=== PATIENT | female | born 1960 | race Caucasian/White ===

== ENCOUNTER → 2016-11-24 | Outpatient (CLI) | payer MEDICAID, OTHER ==
[~2016-11-24] MED LIST: ACET325T14 PO; ALOE PO; DEXA4TAB PO; DOXY100C2 PO; L.AC1CAP6 PO; MULT-249 PO; ONDA-39 PO; TURM1POW2 PO; WHEAT GRASS PO; [UNRECOGNIZED DRUG - OTHER] PO
[2016-11-24 12:39] LABS: ASPARTATE AMINO TRANSFERASE 13 U/L (15-37); BLOOD UREA NITROGEN 6 mg/dL (7-18)
== END | disposition home or self-care (01) ==
LOC: STAR 11:00
PROVIDERS: ATTEND Specialist
DX: Z01.818 Encounter for other preprocedural examination (principal); C48.1 Malignant neoplasm of specified parts of peritoneum; J90 Pleural effusion, not elsewhere classified; Z90.710 Acquired absence of both cervix and uterus; Z90.722 Acquired absence of ovaries, bilateral
CPT/HCPCS: 36415; 71020; 80053; 85025; 85610; 85730; 93005

== ENCOUNTER → 2016-11-30 | Outpatient (CLI) | payer OTHER ==
[~2016-11-30] MED LIST changes: +LIDOCAINE 1%, 20ML ONE; +SODIUM BICARBONATE 4.2%, 5ML ONE
[2016-11-30 13:03] LABS: CYTOLOGY BODY FLUID RECD INTO PATHOLOGY; CYTOLOGY BODY FLUID SOURCE PLEURAL FLUID
== END | disposition home or self-care (01) ==
LOC: RAD 11:25
PROVIDERS: ATTEND Specialist
DX: J90 Pleural effusion, not elsewhere classified (principal); C56.9 Malignant neoplasm of unspecified ovary
CPT/HCPCS: 32555; 88112; 88305; J3490

== ENCOUNTER 2016-12-01 16:00 | Inpatient (IN) | payer MEDICAID, OTHER ==
[~2016-12-01] VITALS: Ht 162.6 cm; Wt 69.0 kg
[~2016-12-01 16:00] MED LIST changes: -LIDOCAINE 1%, 20ML ONE; -SODIUM BICARBONATE 4.2%, 5ML ONE
[2016-12-04] MEDS ORDERED: BUPIVACAINE/PF-EPI 0.25% 1:200K ONE (06:52)
[2016-12-04] MEDS ORDERED: LACTATED RINGERS 1,000 ML IV SCH (13:56)
[2016-12-04 14:03] VITALS: BP 112/71
[2016-12-04] MEDS ORDERED: FENTANYL PF 250 MCG/5ML ONE (15:16)
[2016-12-04] MEDS ORDERED: MIDAZOLAM 1 MG/ML, 2ML ONE (15:16)
[2016-12-04] MEDS ORDERED: KETOROLAC 30 MG/1 ML ONE (16:57)
[2016-12-04] MEDS ORDERED: ROCURONIUM 10 MG/ML ONE (16:57)
[2016-12-04] MEDS ORDERED: CEFAZOLIN 1,000 MG ONE (16:57)
[2016-12-04] MEDS ORDERED: PROPOFOL 10 MG/ML, 20ML ONE (16:57)
[2016-12-04] MEDS ORDERED: DEXAMETHASONE 4 MG/ML, 1ML ONE (16:57)
[2016-12-04] MEDS ORDERED: ONDANSETRON 2MG/ML, 2ML ONE (16:57)
[2016-12-04] MEDS ORDERED: FENTANYL PF 100 MCG/2ML IV PRN (18:00)
[2016-12-04] MEDS ORDERED: OXYcodone 5 MG/5 ML ORAL.SOL UDC PO PRN (18:00)
[2016-12-04] MEDS ORDERED: ACETAMINOPHEN 325 MG TABLET PO PRN (18:00)
[2016-12-04] MEDS ORDERED: ONDANSETRON 2MG/ML, 2ML IVPush PRN (18:00)
[2016-12-04] MEDS ORDERED: LABETALOL 5MG/ML, 20ML IV PRN (18:00)
[2016-12-04] MEDS ORDERED: MIDAZOLAM 1 MG/ML, 2ML IV PRN (18:00)
[2016-12-04] MEDS ORDERED: PROMETHAZINE 25 MG/ML, 1ML IV PRN (18:00)
[2016-12-04] MEDS ORDERED: MEPERIDINE/PF 25MG/0.5ML IVPush PRN (18:00)
[2016-12-04] MEDS ORDERED: FENTANYL PF 100 MCG/2ML ONE ×2 (20:25→21:20)
[2016-12-04] MEDS ORDERED: HYDROmorphone 2 MG/ML, 1ML ONE (21:20)
[2016-12-04] MEDS ORDERED: OXYcodone 5 MG/5 ML ORAL.SOL UDC ONE (21:21)
[2016-12-04] MEDS: HYDROmorphone 1 MG/ML, 1ML IV PRN ×2 (21:51→22:07)
[2016-12-04 23:40] VITALS: BP 130/62
[2016-12-05] MEDS: KETOROLAC 30 MG/1 ML IV PRN ×3 (00:02→18:42)
[2016-12-05] MEDS: POTASSIUM CHLORIDE 20 MEQ in D5%-0.45% NACL 1,000 ML IV SCH ×4 (00:02→22:42)
[2016-12-05 03:57] VITALS: BP 107/51
[2016-12-05 06:13] LABS: BLOOD UREA NITROGEN 6 mg/dL (7-18)
[2016-12-05] MEDS: OXYcodone/APAP 5/325MG TABLET PO PRN ×2 (06:22→11:53)
[2016-12-05 07:08] VITALS: BP 94/47
[2016-12-05 13:34] VITALS: BP 114/50
[2016-12-05] MEDS: ONDANSETRON 2MG/ML, 2ML IV PRN (14:45)
[2016-12-05 19:13] VITALS: BP 97/45
[2016-12-05] MEDS ORDERED: PROCHLORPERAZINE 5 MG/ML, 2ML IVPush SCH (21:00)
[2016-12-05] MEDS: PROCHLORPERAZINE 5 MG/ML, 2ML IVPush PRN (22:42)
[2016-12-06] MEDS: KETOROLAC 30 MG/1 ML IV PRN ×4 (00:45→20:11)
[2016-12-06 01:23] VITALS: BP 77/40
[2016-12-06] MEDS ORDERED: SODIUM CHLORIDE 0.9% 1,000ML IVBOLUS ONE ×2 (02:00→08:30)
[2016-12-06] MEDS: PROCHLORPERAZINE 5 MG/ML, 2ML IVPush PRN ×2 (05:35→22:24)
[2016-12-06 05:57] LABS: BLOOD UREA NITROGEN 3 mg/dL (7-18)
[2016-12-06 06:50] VITALS: BP 88/47
[2016-12-06 12:21] VITALS: BP 108/59
[2016-12-06 13:43] VITALS: BP 114/63
[2016-12-06] MEDS: POTASSIUM CHLORIDE 20 MEQ in D5%-0.45% NACL 1,000 ML IV SCH ×2 (14:08→23:15)
[2016-12-06 18:00] VITALS: BP 124/77
[2016-12-06] MEDS: HYDROcodone/APAP 5/325 TABLET PO PRN ×2 (18:03→22:24)
[2016-12-06] MEDS: ONDANSETRON 2MG/ML, 2ML IV PRN (18:03)
[2016-12-06 18:38] VITALS: BP 108/67
[2016-12-07 01:46] VITALS: BP 115/68
[2016-12-07] MEDS: HYDROcodone/APAP 5/325 TABLET PO PRN ×4 (02:55→18:23)
[2016-12-07] MEDS: ONDANSETRON 2MG/ML, 2ML IV PRN (04:59)
[2016-12-07] MEDS: POTASSIUM CHLORIDE 20 MEQ in D5%-0.45% NACL 1,000 ML IV SCH ×3 (06:05→21:13)
[2016-12-07 07:23] VITALS: BP 104/53
[2016-12-07] MEDS: ONDANSETRON 4 MG TABLET PO PRN (11:09)
[2016-12-07 11:36] LABS: BLOOD UREA NITROGEN 2 mg/dL (7-18)
[2016-12-07 14:35] VITALS: BP 122/72
[2016-12-07 21:24] VITALS: BP 127/70
[2016-12-08 01:46] VITALS: BP 124/77
[2016-12-08] MEDS: ONDANSETRON 2MG/ML, 2ML IV PRN (02:22)
[2016-12-08] MEDS: HYDROcodone/APAP 5/325 TABLET PO PRN ×4 (02:22→23:57)
[2016-12-08] MEDS: ONDANSETRON 4 MG TABLET PO PRN (02:52)
[2016-12-08] MEDS: POTASSIUM CHLORIDE 20 MEQ in D5%-0.45% NACL 1,000 ML IV SCH ×3 (06:20→22:59)
[2016-12-08 07:55] VITALS: BP 108/65
[2016-12-08] MEDS: PROCHLORPERAZINE 10MG TABLET PO PRN ×3 (08:01→23:00)
[2016-12-08] MEDS: FAMOTIDINE 20 MG TABLET PO SCH (08:01)
[2016-12-08 12:25] VITALS: BP 100/63
[2016-12-08] MEDS ORDERED: METOCLOPRAMIDE 10MG TABLET PO SCH (12:30)
[2016-12-08 18:55] VITALS: BP 123/71
[2016-12-08] MEDS: POTASSIUM CHLORIDE 20 MEQ TAB.ER.PRT PO SCH (23:00)
[2016-12-09 03:10] VITALS: BP 128/65
[2016-12-09] MEDS: PROCHLORPERAZINE 10MG TABLET PO PRN (05:10)
[2016-12-09] MEDS: POTASSIUM CHLORIDE 20 MEQ in D5%-0.45% NACL 1,000 ML IV SCH (05:58)
[2016-12-09] MEDS: HYDROcodone/APAP 5/325 TABLET PO PRN ×2 (05:59→10:41)
[2016-12-09] MEDS: FAMOTIDINE 20 MG TABLET PO SCH (08:27)
[2016-12-09] MEDS: POTASSIUM CHLORIDE 20 MEQ TAB.ER.PRT PO SCH (08:28)
[2016-12-09 09:10] VITALS: BP 127/75
[2016-12-09] MEDS: ONDANSETRON 4 MG TABLET PO PRN (09:56)
[2016-12-09] MEDS ORDERED: HYDR-3240 PO (10:21)
[2016-12-09 10:30] VITALS: BP 131/75
[2016-12-09] MEDS ORDERED: FAMO-79 PO (10:48)
[2016-12-09] MEDS ORDERED: ONDA4TAB7 PO ×2 (10:48→11:09)
[2016-12-09] MEDS ORDERED: PROC10TA78 PO (10:49)
[2016-12-09] MEDS ORDERED: FAMO20TA7 PO (11:09)
[2016-12-09] MEDS ORDERED: PROC10TA PO (11:10)
== END 2016-12-09 11:25 | disposition home or self-care (01) | DRG 357 ==
LOC: ORIP 12-04 12:02 → 4NOR 12-04 22:33
PROVIDERS: ADMIT Specialist; ATTEND Specialist
PROC: 0DBW4ZZ Excision of Peritoneum, Percutaneous Endoscopic Approach (ICD-10-PCS; 2016-12-04)
PROC: 0TN64ZZ Release Right Ureter, Percutaneous Endoscopic Approach (ICD-10-PCS; 2016-12-04)
PROC: 0UT9FZZ Resection of Uterus, Via Natural or Artificial Opening With Percutaneous Endoscopic Assistance (ICD-10-PCS; 2016-12-04)
PROC: 0UT2FZZ Resection of Bilateral Ovaries, Via Natural or Artificial Opening With Percutaneous Endoscopic Assistance (ICD-10-PCS; 2016-12-04)
PROC: 0UT7FZZ Resection of Bilateral Fallopian Tubes, Via Natural or Artificial Opening With Percutaneous Endoscopic Assistance (ICD-10-PCS; 2016-12-04)
PROC: [UNRECOGNIZED PROCEDURE] (2016-12-04)
PROC: 8E0W4CZ Robotic Assisted Procedure of Trunk Region, Percutaneous Endoscopic Approach (ICD-10-PCS; 2016-12-04)
PROC: 0TN74ZZ Release Left Ureter, Percutaneous Endoscopic Approach (ICD-10-PCS; principal; 2016-12-04 15:30)
DX: C48.1 Malignant neoplasm of specified parts of peritoneum (principal); C78.6 Secondary malignant neoplasm of retroperitoneum and peritoneum; C56.9 Malignant neoplasm of unspecified ovary; J91.0 Malignant pleural effusion; D07.39 Carcinoma in situ of other female genital organs
CPT/HCPCS: 36415; 80048; 83735; 85025; 88307; 88309; J0690; J1100; J1170; J1885; J2250; J2405; J2704; J3010; J3480; Q0162; Q0164; J0780; J7030; J7120

== ENCOUNTER 2016-12-24 09:03 | Emergency (ER) | payer OTHER ==
[~2016-12-24] VITALS: Ht 162.6 cm; Wt 61.4 kg
[~2016-12-24 09:03] MED LIST changes: +FAMO-79 PO; +FAMO20TA7 PO; +HYDR-3240 PO; +ONDA4TAB7 PO; +PROC10TA PO; +PROC10TA78 PO
[2016-12-24] MEDS ORDERED: CBD OIL (09:33)
[2016-12-24] MEDS ORDERED: SODIUM CHLORIDE FLUSH 10ML SYR IVF ONE (10:00)
[2016-12-24 10:12] LABS: BLOOD UREA NITROGEN 3 mg/dL (7-18)
[2016-12-24] MEDS ORDERED: LIDOCAINE 1%, 20ML ONE (10:29)
[2016-12-24] MEDS ORDERED: SODIUM BICARBONATE 4.2%, 5ML ONE (10:30)
[2016-12-24 12:35] VITALS: BP 99/52
== END 2016-12-24 12:37 | disposition home or self-care (01) ==
LOC: ED 10:20
DX: Z90.710 Acquired absence of both cervix and uterus (principal); C56.9 Malignant neoplasm of unspecified ovary; Z98.890 Other specified postprocedural states
CPT/HCPCS: 36415; 71010; 71020; 80048; 82040; 82150; 82945; 83615; 83880; 83986; 84157; 85025; 87070; 87205; 88112; 88305; 89051; 93005; 99285; J3490

== ENCOUNTER 2017-02-16 16:35 | Emergency (ER) | payer OTHER ==
[~2017-02-16] VITALS: Ht 162.6 cm; Wt 57.5 kg
[~2017-02-16 16:35] MED LIST changes: +CBD OIL
[2017-02-16] MEDS ORDERED: SODIUM CHLORIDE FLUSH 10ML SYR IVF ONE (17:00)
[2017-02-16 17:37] LABS: BLOOD UREA NITROGEN 4 mg/dL (7-18)
[2017-02-16 17:43] LABS: ASPARTATE AMINO TRANSFERASE 34 U/L (15-37)
[2017-02-16] MEDS ORDERED: ONDA4TAB10 PO (20:08)
[2017-02-16] MEDS ORDERED: OMNIPAQUE 350 MG/ML, 100ML BOTTLE ONE (20:48)
[2017-02-16] MEDS ORDERED: ONDANSETRON 2MG/ML, 2ML ONE (20:54)
[2017-02-16 21:58] VITALS: BP 139/81
[2017-02-16] MEDS ORDERED: ONDANSETRON 2MG/ML, 2ML IVPush ONE (22:00)
== END 2017-02-16 22:31 | disposition home or self-care (01) ==
LOC: ED 19:12
DX: C56.9 Malignant neoplasm of unspecified ovary (principal); Z90.710 Acquired absence of both cervix and uterus; Z85.89 Personal history of malignant neoplasm of other organs and systems
CPT/HCPCS: 36415; 74177; 76700; 80053; 81001; 83690; 85025; 85610; 85730; 96374; 99285; J2405; Q9967

== ENCOUNTER → 2017-02-19 | Outpatient (CLI) | payer OTHER ==
[~2017-02-19] MED LIST changes: +ONDA4TAB10 PO
== END | disposition home or self-care (01) ==
LOC: RAD 11:44
PROVIDERS: ATTEND Homeopath
DX: Z45.2 Encounter for adjustment and management of vascular access device (principal); C56.9 Malignant neoplasm of unspecified ovary
CPT/HCPCS: 36569; 76937; 77001; C1751

== ENCOUNTER 2017-02-23 21:04 | Inpatient (IN) | payer OTHER ==
[~2017-02-23] VITALS: Ht 162.6 cm; Wt 65.4 kg
[2017-02-23] MEDS ORDERED: HYDROmorphone 1 MG/ML, 1ML ONE (21:46)
[2017-02-23] MEDS ORDERED: ONDANSETRON 2MG/ML, 2ML ONE (21:46)
[2017-02-23] MEDS ORDERED: SODIUM CHLORIDE 0.9% 1,000ML IVBOLUS ONE ×3 (22:00→23:30)
[2017-02-23] MEDS ORDERED: ONDANSETRON 2MG/ML, 2ML IVPush ONE (22:00)
[2017-02-23] MEDS ORDERED: HYDROmorphone 1 MG/ML, 1ML IVPush PRN (22:00)
[2017-02-23 22:49] LABS: HEMATOCRIT 35.9 % (34.6-47.8); HEMOGLOBIN 11.3 g/dL (11.7-16.4)
[2017-02-23 23:02] LABS: ASPARTATE AMINO TRANSFERASE 72 U/L (15-37); BLOOD UREA NITROGEN 6 mg/dL (7-18)
[2017-02-23] MEDS ORDERED: VANCOMYCIN PER PHARMACY IV ONE (23:30)
[2017-02-23] MEDS ORDERED: PIPERACILLIN/TAZO/PMX 3.375GM 50 ML IVPB ONE (23:30)
[2017-02-23] MEDS ORDERED: VANCOMYCIN 1,100 MG in SODIUM CHLORIDE 0.9% 250 ML IV ONE (23:30)
[2017-02-23] MEDS ORDERED: PIPERACILLIN/TAZO/PMX 3.375GM 50 ML ONE (23:38)
[2017-02-24] MEDS ORDERED: POTASSIUM CHLORIDE 20 MEQ in SODIUM CHLORIDE 0.9% 1,000 ML IV ONE (01:09)
[2017-02-24] MEDS ORDERED: HYDROmorphone 1 MG/ML, 1ML IVPush PRN (01:30)
[2017-02-24] MEDS ORDERED: ACETAMINOPHEN 325 MG TABLET PO PRN ×2 (01:30→19:30)
[2017-02-24] MEDS ORDERED: TEMAZEPAM 15 MG CAPSULE PO PRN ×2 (01:30→19:30)
[2017-02-24] MEDS ORDERED: BISACODYL 10 MG SUPP PR PRN ×2 (01:30→19:30)
[2017-02-24] MEDS ORDERED: ENOXAPARIN 40 MG/0.4 ML SQ SCH (01:30)
[2017-02-24] MEDS ORDERED: DOCUSATE 100 MG CAPSULE PO PRN ×2 (01:30→19:30)
[2017-02-24] MEDS ORDERED: ONDANSETRON 2MG/ML, 2ML IVPush PRN (01:30)
[2017-02-24] MEDS ORDERED: GUAIFENESIN/DM 200-20MG, 10ML UDC PO PRN ×2 (01:30→19:30)
[2017-02-24 04:13] VITALS: BP 167/103
[2017-02-24] MEDS: SODIUM CHLORIDE 0.9% 1,000 ML IV SCH ×4 (04:19→22:37)
[2017-02-24] MEDS: ONDANSETRON 2MG/ML, 2ML IVPush PRN ×4 (04:20→22:37)
[2017-02-24] MEDS: HYDROmorphone 2 MG/ML, 1ML IVPush PRN ×6 (04:20→21:41)
[2017-02-24 05:05] VITALS: BP 124/74
[2017-02-24 07:58] VITALS: BP 127/75
[2017-02-24] MEDS ORDERED: LIDOCAINE 1%, 20ML ONE (09:18)
[2017-02-24] MEDS: AZITHROMYCIN 500 MG in SODIUM CHLORIDE 0.9% 250 ML IV SCH (10:09)
[2017-02-24] MEDS: CEFTRIAXONE PMX 1GM/50ML 50 ML IV SCH (10:09)
[2017-02-24 15:02] VITALS: BP 154/79
[2017-02-24 19:14] VITALS: BP 151/81
[2017-02-25 01:21] VITALS: BP 137/60
[2017-02-25 04:47] LABS: HEMATOCRIT 35.8 % (34.6-47.8); HEMOGLOBIN 11.1 g/dL (11.7-16.4); WHITE BLOOD COUNT 14.4 x10^3/uL (3.4-10)
[2017-02-25 04:51] LABS: BLOOD UREA NITROGEN 8 mg/dL (7-18)
[2017-02-25 04:55] LABS: ASPARTATE AMINO TRANSFERASE 127 U/L (15-37)
[2017-02-25] MEDS: ONDANSETRON 2MG/ML, 2ML IVPush PRN ×3 (05:14→18:12)
[2017-02-25] MEDS ORDERED: POTASSIUM CHLORIDE 20 MEQ TAB.ER.PRT PO ONE (06:00)
[2017-02-25] MEDS ORDERED: MAGNESIUM SULFATE PMX 4GM/100M 100 ML IV ONE (06:00)
[2017-02-25] MEDS: SODIUM CHLORIDE 0.9% 1,000 ML IV SCH ×3 (06:30→22:22)
[2017-02-25 07:53] VITALS: BP 162/79
[2017-02-25] MEDS: HYDROmorphone 2 MG/ML, 1ML IVPush PRN ×2 (08:23→12:07)
[2017-02-25] MEDS: AZITHROMYCIN 500 MG in SODIUM CHLORIDE 0.9% 250 ML IV SCH (10:11)
[2017-02-25] MEDS ORDERED: PROCHLORPERAZINE 5 MG/ML, 2ML IVPush PRN (11:00)
[2017-02-25] MEDS: CEFTRIAXONE PMX 1GM/50ML 50 ML IV SCH (12:07)
[2017-02-25] MEDS ORDERED: POTASSIUM PHOS 4.4 MEQ/ML IV ONE (13:00)
[2017-02-25] MEDS: PIPERACILLIN/TAZO/PMX 4.5GM 100 ML IV SCH ×2 (13:55→21:07)
[2017-02-25] MEDS ORDERED: SODIUM CHLORIDE 0.9% IV ONE (14:00)
[2017-02-25] MEDS ORDERED: POTASSIUM PHOSPHATE IV ONE (14:00)
[2017-02-25 14:01] VITALS: BP 140/71
[2017-02-25] MEDS: NEUTRA PHOS K 250 MG TABLET PO SCH ×3 (15:46→21:06)
[2017-02-25 19:09] VITALS: BP 133/73
[2017-02-25] MEDS: MAGNESIUM OXIDE 400 MG TABLET PO SCH (21:06)
[2017-02-25] MEDS: PROCHLORPERAZINE 5 MG/ML, 2ML IVPush PRN (21:13)
[2017-02-26] MEDS: ONDANSETRON 2MG/ML, 2ML IVPush PRN ×3 (01:10→18:18)
[2017-02-26 02:18] VITALS: BP 125/73
[2017-02-26] MEDS: PROCHLORPERAZINE 5 MG/ML, 2ML IVPush PRN ×4 (02:43→21:52)
[2017-02-26] MEDS: PIPERACILLIN/TAZO/PMX 4.5GM 100 ML IV SCH ×3 (04:29→22:12)
[2017-02-26] MEDS: SODIUM CHLORIDE 0.9% 1,000 ML IV SCH ×3 (04:32→21:53)
[2017-02-26 04:46] LABS: HEMATOCRIT 29.9 % (34.6-47.8); HEMOGLOBIN 9.7 g/dL (11.7-16.4); WHITE BLOOD COUNT 9.4 x10^3/uL (3.4-10)
[2017-02-26 06:35] LABS: BLOOD UREA NITROGEN 5 mg/dL (7-18)
[2017-02-26 06:39] LABS: ASPARTATE AMINO TRANSFERASE 149 U/L (15-37)
[2017-02-26] MEDS ORDERED: POTASSIUM CHLORIDE 40 MEQ in SODIUM CHLORIDE 0.9% 500 ML IV ONE (07:00)
[2017-02-26 07:15] VITALS: BP 137/67
[2017-02-26] MEDS ORDERED: POTASSIUM PHOS 4.4 MEQ/ML IV SCH (07:30)
[2017-02-26] MEDS ORDERED: POTASSIUM PHOSPHATE 44 MEQ in SODIUM CHLORIDE 0.9% 500 ML IV ONE (07:30)
[2017-02-26] MEDS: MAGNESIUM OXIDE 400 MG TABLET PO SCH ×2 (09:00→21:53)
[2017-02-26] MEDS: NEUTRA PHOS K 250 MG TABLET PO SCH ×3 (09:00→21:53)
[2017-02-26 09:03] VITALS: BP 135/74
[2017-02-26] MEDS: HYDROmorphone 2 MG/ML, 1ML IVPush PRN ×3 (10:53→21:52)
[2017-02-26] MEDS: AZITHROMYCIN 500 MG in SODIUM CHLORIDE 0.9% 250 ML IV SCH (12:40)
[2017-02-26 14:50] VITALS: BP 127/96
[2017-02-26 18:54] VITALS: BP 128/69
[2017-02-26 22:15] LABS: BLOOD UREA NITROGEN 3 mg/dL (7-18)
[2017-02-26] MEDS ORDERED: ALUMINUM/MAG/SIMETHICONE 30 ML UDC PO PRN (23:00)
[2017-02-26] MEDS ORDERED: POTASSIUM CHLORIDE 40 MEQ in SODIUM CHLORIDE 0.9% 100 ML IV ONE (23:00)
[2017-02-27 02:00] VITALS: BP 151/77
[2017-02-27] MEDS: HYDROmorphone 2 MG/ML, 1ML IVPush PRN ×5 (02:14→22:52)
[2017-02-27] MEDS: ONDANSETRON 2MG/ML, 2ML IVPush PRN ×3 (02:18→17:30)
[2017-02-27] MEDS: PIPERACILLIN/TAZO/PMX 4.5GM 100 ML IV SCH ×3 (05:27→21:01)
[2017-02-27] MEDS: NS + 20MEQ KCL 1,000 ML IV SCH ×3 (05:40→16:00)
[2017-02-27 06:16] LABS: HEMATOCRIT 29.7 % (34.6-47.8); HEMOGLOBIN 9.7 g/dL (11.7-16.4); WHITE BLOOD COUNT 7.8 x10^3/uL (3.4-10)
[2017-02-27 06:36] LABS: ASPARTATE AMINO TRANSFERASE 129 U/L (15-37); BLOOD UREA NITROGEN 2 mg/dL (7-18)
[2017-02-27] MEDS: PROCHLORPERAZINE 5 MG/ML, 2ML IVPush PRN (06:53)
[2017-02-27 07:28] VITALS: BP 139/74
[2017-02-27] MEDS ORDERED: MAGNESIUM SULFATE PMX 2GM/50ML 50 ML IV ONE (07:30)
[2017-02-27] MEDS ORDERED: LOPERAMIDE 1 MG/5 ML, 10ML UDC PO PRN (07:30)
[2017-02-27] MEDS: MAGNESIUM OXIDE 400 MG TABLET PO SCH ×2 (09:45→21:02)
[2017-02-27] MEDS: POTASSIUM PHOSPHATE 40 MEQ in SODIUM CHLORIDE 0.9% 500 ML IV SCH ×3 (09:45→21:01)
[2017-02-27] MEDS: AZITHROMYCIN 500 MG in SODIUM CHLORIDE 0.9% 250 ML IV SCH (09:45)
[2017-02-27] MEDS: NEUTRA PHOS K 250 MG TABLET PO SCH ×3 (09:45→21:02)
[2017-02-27] MEDS: ENOXAPARIN 40 MG/0.4 ML SQ SCH (09:55)
[2017-02-27] MEDS ORDERED: POTASSIUM PHOS 4.4 MEQ/ML IV SCH (11:00)
[2017-02-27] MEDS ORDERED: CALCIUM CARBONATE 500 MG TAB.CHEW PO PRN (12:00)
[2017-02-27 14:29] VITALS: BP 132/70
[2017-02-27 16:32] LABS: BLOOD UREA NITROGEN 1 mg/dL (7-18)
[2017-02-27] MEDS: POTASSIUM CHLORIDE 10% 40 MEQ/30 ML UDC PO SCH ×2 (17:20→21:02)
[2017-02-27 20:00] VITALS: BP 129/74
[2017-02-28 01:00] VITALS: BP 134/81
[2017-02-28] MEDS: POTASSIUM CHLORIDE 10% 40 MEQ/30 ML UDC PO SCH (01:00)
[2017-02-28] MEDS: ONDANSETRON 2MG/ML, 2ML IVPush PRN (01:40)
[2017-02-28] MEDS: HYDROmorphone 2 MG/ML, 1ML IVPush PRN ×5 (04:31→23:59)
[2017-02-28 05:11] LABS: HEMATOCRIT 30.9 % (34.6-47.8); HEMOGLOBIN 10.1 g/dL (11.7-16.4); WHITE BLOOD COUNT 9.8 x10^3/uL (3.4-10)
[2017-02-28 05:24] LABS: ASPARTATE AMINO TRANSFERASE 83 U/L (15-37); BLOOD UREA NITROGEN 2 mg/dL (7-18)
[2017-02-28] MEDS: PIPERACILLIN/TAZO/PMX 4.5GM 100 ML IV SCH ×3 (05:44→21:28)
[2017-02-28 07:21] VITALS: BP 146/80
[2017-02-28] MEDS: PROCHLORPERAZINE 5 MG/ML, 2ML IVPush PRN ×3 (08:15→21:22)
[2017-02-28] MEDS: NEUTRA PHOS K 250 MG TABLET PO SCH ×3 (09:16→21:22)
[2017-02-28] MEDS: AZITHROMYCIN 500 MG in SODIUM CHLORIDE 0.9% 250 ML IV SCH (09:16)
[2017-02-28] MEDS: MAGNESIUM OXIDE 400 MG TABLET PO SCH ×2 (09:16→21:22)
[2017-02-28] MEDS: ENOXAPARIN 40 MG/0.4 ML SQ SCH (09:17)
[2017-02-28] MEDS: NS + 20MEQ KCL 1,000 ML IV SCH ×3 (15:02→23:59)
[2017-02-28 15:19] VITALS: BP 122/72
[2017-02-28 19:19] VITALS: BP 120/75
[2017-03-01] MEDS: ONDANSETRON 2MG/ML, 2ML IVPush PRN (00:07)
[2017-03-01 01:13] VITALS: BP 118/76
[2017-03-01] MEDS: HYDROmorphone 2 MG/ML, 1ML IVPush PRN ×5 (04:10→21:29)
[2017-03-01] MEDS: PIPERACILLIN/TAZO/PMX 4.5GM 100 ML IV SCH ×3 (05:31→21:25)
[2017-03-01 08:00] VITALS: BP 146/87
[2017-03-01 08:01] LABS: BLOOD UREA NITROGEN 3 mg/dL (7-18)
[2017-03-01] MEDS: PROCHLORPERAZINE 5 MG/ML, 2ML IVPush PRN ×2 (08:02→13:15)
[2017-03-01] MEDS ORDERED: POTASSIUM PHOS 4.4 MEQ/ML IV SCH (08:30)
[2017-03-01] MEDS: NEUTRA PHOS K 250 MG TABLET PO SCH ×3 (09:00→21:25)
[2017-03-01] MEDS: ENOXAPARIN 40 MG/0.4 ML SQ SCH (09:15)
[2017-03-01] MEDS: MAGNESIUM OXIDE 400 MG TABLET PO SCH ×2 (09:16→21:25)
[2017-03-01] MEDS ORDERED: POTASSIUM PHOSPHATE 44 MEQ in SODIUM CHLORIDE 0.9% 500 ML IV ONE (10:00)
[2017-03-01 13:10] VITALS: BP 144/83
[2017-03-01] MEDS: NS + 20MEQ KCL 1,000 ML IV SCH (16:55)
[2017-03-01 20:11] VITALS: BP 128/78
[2017-03-01] MEDS ORDERED: NS + 20MEQ KCL 1,000 ML IV SCH (23:00)
[2017-03-02] MEDS: HYDROmorphone 2 MG/ML, 1ML IVPush PRN ×4 (00:11→20:15)
[2017-03-02 00:38] VITALS: BP 127/80
[2017-03-02 03:38] LABS: BLOOD UREA NITROGEN 4 mg/dL (7-18)
[2017-03-02] MEDS: PIPERACILLIN/TAZO/PMX 4.5GM 100 ML IV SCH ×3 (05:17→16:59)
[2017-03-02 08:02] VITALS: BP 156/89
[2017-03-02] MEDS: ONDANSETRON 2MG/ML, 2ML IVPush PRN (08:43)
[2017-03-02] MEDS: NEUTRA PHOS K 250 MG TABLET PO SCH ×3 (08:48→21:00)
[2017-03-02] MEDS: MAGNESIUM OXIDE 400 MG TABLET PO SCH ×2 (08:48→20:14)
[2017-03-02] MEDS: ENOXAPARIN 40 MG/0.4 ML SQ SCH (08:49)
[2017-03-02] MEDS: HYDROcodone/APAP 7.5-325MG/15ML UDC PO PRN ×2 (10:50→17:06)
[2017-03-02] MEDS ORDERED: ONDANSETRON ODT 4 MG PO PRN (11:00)
[2017-03-02 12:46] VITALS: BP 151/94
[2017-03-02] MEDS: NS + 20MEQ KCL 1,000 ML IV SCH (14:16)
[2017-03-02 19:43] VITALS: BP 144/85
[2017-03-02] MEDS: PROCHLORPERAZINE 5 MG/ML, 2ML IVPush PRN (23:10)
[2017-03-03 00:57] VITALS: BP 147/81
[2017-03-03] MEDS: PIPERACILLIN/TAZO/PMX 4.5GM 100 ML IV SCH ×3 (01:18→18:12)
[2017-03-03] MEDS: HYDROmorphone 2 MG/ML, 1ML IVPush PRN ×3 (01:23→18:12)
[2017-03-03 04:30] LABS: HEMATOCRIT 29.6 % (34.6-47.8); HEMOGLOBIN 9.7 g/dL (11.7-16.4); WHITE BLOOD COUNT 9.3 x10^3/uL (3.4-10)
[2017-03-03 04:41] LABS: BLOOD UREA NITROGEN 5 mg/dL (7-18)
[2017-03-03 07:13] VITALS: BP 137/80
[2017-03-03] MEDS: HYDROcodone/APAP 7.5-325MG/15ML UDC PO PRN ×3 (07:20→21:48)
[2017-03-03] MEDS: ENOXAPARIN 40 MG/0.4 ML SQ SCH (08:25)
[2017-03-03] MEDS: NEUTRA PHOS K 250 MG TABLET PO SCH ×2 (08:26→19:44)
[2017-03-03] MEDS: ONDANSETRON 2MG/ML, 2ML IVPush PRN ×2 (08:26→15:49)
[2017-03-03] MEDS: MAGNESIUM OXIDE 400 MG TABLET PO SCH (08:26)
[2017-03-03] MEDS ORDERED: MAGNESIUM SULFATE PMX 2GM/50ML 50 ML IV ONE (09:30)
[2017-03-03] MEDS ORDERED: NS + 40MEQ KCL 1,000 ML IV SCH (10:30)
[2017-03-03] MEDS: FUROSEMIDE 40 MG/4 ML IV SCH ×2 (11:27→18:18)
[2017-03-03] MEDS: PROCHLORPERAZINE 5 MG/ML, 2ML IVPush PRN ×2 (11:28→22:09)
[2017-03-03 13:02] VITALS: BP 140/84
[2017-03-03 19:42] VITALS: BP 127/86
[2017-03-03] MEDS ORDERED: DOCUSATE 100 MG CAPSULE PO PRN (20:00)
[2017-03-03] MEDS ORDERED: ACETAMINOPHEN 325 MG TABLET PO PRN (20:00)
[2017-03-03] MEDS ORDERED: TEMAZEPAM 15 MG CAPSULE PO PRN (20:00)
[2017-03-03] MEDS ORDERED: BISACODYL 10 MG SUPP PR PRN (20:00)
[2017-03-04] MEDS: NEUTRA PHOS K 250 MG TABLET PO SCH ×4 (00:19→22:13)
[2017-03-04] MEDS: HYDROmorphone 2 MG/ML, 1ML IVPush PRN ×5 (00:38→22:14)
[2017-03-04] MEDS: ONDANSETRON 2MG/ML, 2ML IVPush PRN ×2 (00:38→16:30)
[2017-03-04] MEDS: PIPERACILLIN/TAZO/PMX 4.5GM 100 ML IV SCH ×3 (01:18→16:42)
[2017-03-04 01:23] VITALS: BP 104/70
[2017-03-04] MEDS: PROCHLORPERAZINE 5 MG/ML, 2ML IVPush PRN ×3 (03:07→22:13)
[2017-03-04 05:59] LABS: BLOOD UREA NITROGEN 4 mg/dL (7-18)
[2017-03-04] MEDS ORDERED: POTASSIUM CHLORIDE 40 MEQ in SODIUM CHLORIDE 0.9% 100 ML IV ONE (06:30)
[2017-03-04 07:51] VITALS: BP 133/74
[2017-03-04] MEDS: ENOXAPARIN 40 MG/0.4 ML SQ SCH ×2 (09:01→09:42)
[2017-03-04] MEDS: POTASSIUM CHLORIDE 20 MEQ PACKET PO SCH ×2 (12:06→16:29)
[2017-03-04 13:45] VITALS: BP 114/73
[2017-03-04 20:00] VITALS: BP 121/69
[2017-03-04 22:11] VITALS: BP 126/83
[2017-03-05 00:45] VITALS: BP 112/67
[2017-03-05] MEDS: PIPERACILLIN/TAZO/PMX 4.5GM 100 ML IV SCH ×2 (01:19→08:07)
[2017-03-05 05:10] LABS: BLOOD UREA NITROGEN 5 mg/dL (7-18); HEMATOCRIT 35.1 % (34.6-47.8); HEMOGLOBIN 11.2 g/dL (11.7-16.4); WHITE BLOOD COUNT 10.2 x10^3/uL (3.4-10)
[2017-03-05 07:51] VITALS: BP 117/75
[2017-03-05] MEDS: POTASSIUM CHLORIDE 20 MEQ PACKET PO SCH (08:07)
[2017-03-05] MEDS: ENOXAPARIN 40 MG/0.4 ML SQ SCH (08:07)
[2017-03-05] MEDS: NEUTRA PHOS K 250 MG TABLET PO SCH (08:07)
[2017-03-05] MEDS ORDERED: OMNIPAQUE 350 MG/ML, 100ML BOTTLE ONE (10:26)
[2017-03-05] MEDS ORDERED: FURO-92 PO (10:55)
[2017-03-05] MEDS ORDERED: FURO40TA6 PO (10:55)
[2017-03-05] MEDS ORDERED: POTA20PA8 PO (10:55)
[2017-03-05] MEDS ORDERED: AMOX1TAB64 PO (10:55)
[2017-03-05] MEDS ORDERED: HYDR-3307 PO (10:55)
== END 2017-03-05 14:22 | disposition home health service (06) | DRG 871 ==
LOC: ED 22:03 → EDIP 02-24 01:09 → SUATTDRO 02-24 01:14 → 3NW 02-24 03:24 → 5SO 02-26 08:08 → DCLOUNGE 03-05 14:10
PROVIDERS: ADMIT Internal Medicine; ATTEND Family Medicine
PROC: 0WJ93ZZ Inspection of Right Pleural Cavity, Percutaneous Approach (ICD-10-PCS; principal; 2017-02-24)
PROC: 0W9G3ZZ Drainage of Peritoneal Cavity, Percutaneous Approach (ICD-10-PCS; 2017-02-24)
PROC: 0W9G3ZZ Drainage of Peritoneal Cavity, Percutaneous Approach (ICD-10-PCS; 2017-03-04)
DX: A41.9 Sepsis, unspecified organism (principal); J69.0 Pneumonitis due to inhalation of food and vomit; E43 Unspecified severe protein-calorie malnutrition; E87.2 Acidosis; R18.0 Malignant ascites; C78.2 Secondary malignant neoplasm of pleura; J90 Pleural effusion, not elsewhere classified; N13.30 Unspecified hydronephrosis; R59.1 Generalized enlarged lymph nodes; E86.0 Dehydration; E86.9 Volume depletion, unspecified; Z66 Do not resuscitate; Z85.43 Personal history of malignant neoplasm of ovary; Z68.24 Body mass index [BMI] 24.0-24.9, adult; Z90.710 Acquired absence of both cervix and uterus
CPT/HCPCS: 32555; 36415; 49083; 71010; 71275; 74000; 76700; 76705; 80048; 80053; 81001; 82010; 83605; 83690; 83735; 84100; 84145; 85025; 87040; 87324; 93005; 96361; 96365; 96375; J0456; J0696; J1170; J1650; J1940; J2405; J2543; J3370; J3480; J3490; Q0162; Q9967; J0780; J3475; J7030; J7040; J7050

== ENCOUNTER → 2017-03-09 | Outpatient (CLI) | payer OTHER ==
[~2017-03-09] MED LIST changes: +AMOX1TAB64 PO; +FURO-92 PO; +FURO40TA6 PO; +HYDR-3307 PO; +LIDOCAINE 1%, 20ML ONE; +POTA20PA8 PO
== END | disposition home or self-care (01) ==
LOC: RAD 12:17
PROVIDERS: ATTEND Homeopath
DX: C56.9 Malignant neoplasm of unspecified ovary (principal)
CPT/HCPCS: 49083; 88112; 88305; J3490

== ENCOUNTER → 2017-03-14 | Outpatient (CLI) | payer OTHER ==
[~2017-03-14] MED LIST changes: +ALBUMIN HUMAN 25%, 25GM/100ML ONE; -ONDA-39 PO; +ONDA4TAB12 PO; +POTA20PA25 PO; -POTA20PA8 PO
== END | disposition home or self-care (01) ==
LOC: RAD 12:44
PROVIDERS: ATTEND Homeopath
DX: C56.9 Malignant neoplasm of unspecified ovary (principal); R18.0 Malignant ascites; R14.0 Abdominal distension (gaseous)
CPT/HCPCS: 49083; J3490; P9047; J1642